=== PATIENT | male | born 1995 | race Caucasian/White ===

== ENCOUNTER 2018-01-16 20:36 | Emergency (ER) | payer OTHER ==
[2018-01-16 21:20] VITALS: BP 129/65
--- NOTE | 2018-01-16 22:05 | UC ---
Complaint Male HPI - HPI Summary HPI Summary: 1. PATIENT HERE COMPLAINING OF ONSET OF FLANK PAIN AND ABDOMINAL PAIN STARTING YESTERDAY. IS COMPLAINING OF DYSURIA AND FREQUENCY FOR THE PAST SEVERAL DAYS. TODAY WHEN HE WAS URINATING A BLOOD CLOT CAME OUT. DENIES PENILE D/C. IS IN A MONOGAMOUS RELATIONSHIP WITH A FEMALE FOR OVER 1 YEAR. IS NOT CONCERNED ABOUT STD. 2. PATIENT COMPLAINS OF 7-8 MONTHS OF SWOLLEN LYMPH NODE ON THE LEFT SIDE OF HIS NECK. 3. HE IS ALSO CONCERNED ABOUT LOSS OF SKIN COLOR ON HIS UPPER ARMS THAT HAS BEEN PROGRESSIVELY WORSENING OVER THE PAST ONE YEAR. - History of Current Complaint Chief Complaint: UCBackPain Stated Complaint: ABD & BACK PAIN,POSS UTI Time Seen by Provider: 01/16/18 21:37 Hx Obtained From: Patient Onset/Duration: Sudden Onset, Lasting Days, Still Present Severity Initially: Moderate Severity Currently: Moderate Pain Intensity: 7 Pain Scale Used: 0-10 Numeric Location: Flank Aggravating Factor(s): Voiding Alleviating Factor(s): Nothing Associated Signs And Symptoms: Positive: Back Pain, Hematuria, Dysuria - Allergies/Home Medications Allergies/Adverse Reactions: Allergies Allergy/AdvReac Type Severity Reaction Status Date / Time No Known Allergies Allergy Verified 01/16/18 23:20 Home Medications: Home Medications Acetaminophen [Pain Relief] 2 tab PO ONCE PRN 01/16/18 [History Confirmed ] PMH/Surg Hx/FS Hx/Imm Hx Psychological History: Depression - Surgical History Surgical History: None - Family History Known Family History: Positive: Other - depression; esophageal cancer - gram - Social History Alcohol Use: Weekly Substance Use Type: Marijuana, Other Substance Use Comment - Amount & Last Used: MUSHROOMS Smoking Status (MU): Former Smoker Type: Cigarettes Amount Used/How Often: A pack or more per day Length of Time of Smoking/Using Tobacco: 6 Years - Immunization History Most Recent Influenza Vaccination: Unsure Most Recent Tetanus Shot: Within 5 years Most Recent Pneumonia Vaccination: Unsure Review of Systems Constitutional: Fatigue Skin: Rash Respiratory: Negative Cardiovascular: Negative Gastrointestinal: Abdominal Pain Genitourinary: Dysuria, Hematuria, Frequency, Other - FLANK PAIN Psychological: Depressed All Other Systems Reviewed And Are Negative: Yes Physical Exam Triage Information Reviewed: Yes Appearance: Well-Appearing, No Pain Distress, Well-Nourished Vital Signs: Initial Vital Signs Temp 98.3 F 10/20/18 21:11 Pulse 79 01/16/18 21:11 Resp 16 01/16/18 21:11 BP 129/65 01/16/18 21:11 Pulse Ox 100 01/16/18 21:11 Laboratory Tests 01/16/18 21:47 POC Urine Color Dark yellow POC Urine Clarity Cloudy POC Urine pH 5.5 POC Ur Specif [place] >= 1.030 POC Urine Protein 2+ A POC Ur Glucose (UA) Negative POC Urine Ketones Trace A POC Urine Blood 1+ A POC Urine Nitrite Negative POC Urine Bilirubin Negative POC Urine Urobilinogen 1.0 POC U Leukocyte Esteras Negative Vital Signs Reviewed: Yes Eyes: Positive: Conjunctiva Clear ENT: Positive: Hearing grossly normal Neck: Positive: Supple, Tenderness @ - SPFL CERVICAL LAD, Enlarged Nodes @ - SPFL CERVICAL LAD Respiratory Exam: Normal Cardiovascular Exam: Normal Abdomen Description: Positive: Soft, CVA Tenderness (R), CVA Tenderness (L), Other: - DIFFUSELY TENDER. NO REBOUND OR RIGIDITY. Negative: Distended, Guarding Bowel Sounds: Positive: Present Musculoskeletal: Positive: No Edema Neurological: Positive: Alert Psychological: Positive: Age Appropriate Behavior Skin: Positive: Other - HYPOPIGMENTATION UPPER EXTREMITIES Complaint Male Course/Dx - Course Course Of Treatment: PT WITH LONGSTANDING H/O ENLARGED CERVICAL LYMPH NODES AND RECENT HEMATURIA/DYSURIA WITH ABDOMINAL AND FLANK PAIN. UNABLE TO GET STAT LAB OR IMAGING AT . PT TO GO DIRECTLY TO THE ED FOR FURTHER EVALUATION. PT MAY HAVE VITILIGO OR PITYRIASIS ALBA. CONTACT FOR DERM PROVIDED. - Differential Dx/Diagnosis Provider Diagnoses: 1. HEMATURIA/FLANK PAIN/ABD PAIN. 2. LYMPHADENOPATHY - Physician Notifications Discussed Patient Care With: Rachael Marcial - TO [facility] ED BY TAXI Time Discussed With Above Provider: 23:25 Instructed by Provider To: MD Will See In ED Discharge - Sign-Out/Discharge Documenting (check all that apply): Patient Departure All imaging exams completed and their final reports reviewed: No Studies - Discharge Plan Condition: Stable Disposition: TRANS HIGHER LVL OF CARE FAC Patient Education Materials: Lymphadenopathy (ED), Hematuria (ED), Flank Pain ( ED) Referrals: [facility] [Outside] - 3 Days Additional Instructions: GO DIRECTLY TO THE ED FOR FURTHER EVALUATION. YOUR URINE HERE SHOWED BLOOD AND PROTEIN. WE HAVE SENT YOUR URINE FOR TESTING FOR GONORRHEA AND CHLAMYDIA. WE WILL CALL YOU IF POSITIVE. CALL THE NUMBER BELOW FOR ASSISTANCE IN ESTABLISHING WITH A PCP An additional resource available to assist in finding the appropriate physician for your health care needs is the Physician Referral Center (Juliane Kyle). You may contact them by calling [phone]. FOR YOUR SKIN CONDITION CALL DERMATOLOGY FOR EVAL. DERMATOLOGY IN [place] DR. TAMMI BRISCOE [facility], [facility] [address] [facility]; [address] [place] [id number] Dr. Gia Francis [place] Address: [facility]ly [facility], [id number] [place] [phone] DR. ANTON CHAVEZ [facility] Dermatology [address] [place] [address] [facility]. Pita Victor DERMATOLOGY IN [place] DR. RAHAT AMAYA [phone] - Billing Disposition and Condition Condition: STABLE Disposition: Trans Higher Lvl of Care Fac
--- NOTE | 2018-01-18 20:00 | UC ---
- Progress Note Progress Note: Chlamydia positive - appears to have been treated with Cipro, this has poor coverage for chlamydia. Rx for Azithromycin 1 gm sent. Please advise to refrain from sexual activity for at least 1 week AFTER taking antibiotic Course/Dx - Provider Notifications Time Discussed With Above Provider: 23:25 Instructed by Provider To: MD Will See In ED Discharge - Sign-Out/Discharge Documenting (check all that apply): Post-Discharge Follow Up All imaging exams completed and their final reports reviewed: No Studies - Discharge Plan Condition: Stable Disposition: TRANS HIGHER LVL OF CARE FAC Prescriptions: Azithromycin 1,000 mg PO ONCE #2 tab Patient Education Materials: Lymphadenopathy (ED), Hematuria (ED), Flank Pain ( ED) Referrals: [facility] [Outside] - 3 Days Additional Instructions: GO DIRECTLY TO THE ED FOR FURTHER EVALUATION. YOUR URINE HERE SHOWED BLOOD AND PROTEIN. WE HAVE SENT YOUR URINE FOR TESTING FOR GONORRHEA AND CHLAMYDIA. WE WILL CALL YOU IF POSITIVE. CALL THE NUMBER BELOW FOR ASSISTANCE IN ESTABLISHING WITH A PCP An additional resource available to assist in finding the appropriate physician for your health care needs is the Physician Referral Center (Juliane Kyle). You may contact them by calling [phone]. FOR YOUR SKIN CONDITION CALL DERMATOLOGY FOR EVAL. DERMATOLOGY IN [place] DR. TAMMI BRISCOE [facility], [facility] [address] [facility]; [address] [place] [address] Dr. Gia Centeno Address: [address] [place] [address] [address] [place] [address] DR. ANTON CHAVEZ [facility] Dermatology [address] [place] [address] DER[address] IN [place] Dr[address] Pita Victor DERMATOLOGY [place] DR. RAHAT AMAYA [phone] - Billing Disposition and Condition Condition: STABLE Disposition: Trans Higher Lvl of Care Fac
== END 2018-01-16 22:35 | disposition short-term general hospital (02) ==
LOC: UCEAST 20:36
DX: R31.9 Hematuria, unspecified (principal); R10.9 Unspecified abdominal pain
CPT/HCPCS: 81003; 87491; 87591; 99212; G0463

== ENCOUNTER 2018-01-16 23:09 | Emergency (ER) | payer OTHER ==
[2018-01-17 00:47] LABS: ABS Basophils 0 10^3/ul (0-0.2); ABS Eosinophils 0.2 10^3/ul (0-0.6); ABS Lymphocytes 2.2 10^3/ul (1.0-4.8); ABS Monocytes 1.3 10^3/ul (0-0.8); ABS Neutrophils 6.7 10^3/ul (1.5-7.7); ABS Nucleated RBC 0 10^3/ul; Eosinophil % 1.9 % (0-6); Hematocrit 41 % (42-52); Hemoglobin 13.8 g/dl (14.0-18.0); Lymphocyte % 20.8 % (25-47); Mean Corpuscular HGB Conc 34 g/dl (31-36); Mean Corpuscular Hemoglobin 30 pg (27-31); Mean Corpuscular Volume 90 fL (80-94); Mean Platelet Volume 7.3 um3 (7.4-10.4); Nucleated Red Blood Cells % 0; Platelet Count 243 10^3/ul (150-450); Red Blood Count 4.53 10^6/ul (4.00-5.40); Red Cell Distribution Width 13 % (10.5-15); White Blood Count 10.5 10^3/ul (3.5-10.8)
[2018-01-17 00:49] LABS: Urine Appearance Cloudy; Urine Blood Negative (Negative); Urine Color Yellow; Urine Ketones Negative (Negative); Urine Protein Negative (Negative); Urine Red Blood Cell 1+(3-5/hpf) (Absent); Urine Specific Gravity 1.027 (1.010-1.030); Urine Urobilinogen Negative (Negative); Urine White Blood Cell 3+(>20/hpf) (Absent)
[2018-01-17 01:00] LABS: EGFR Non-African American 79.5 (>60)
[2018-01-17] MEDS ORDERED: Ciprofloxacin TAB* 500 MG PO ONE (01:21)
[2018-01-17] MEDS ORDERED: Ketorolac INJ* 30 MG/ML 1 ML VIAL IM ONE (01:21)
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
--- NOTE | 2018-01-17 01:24 | RAD ---
EXAM: CT Abdomen and Pelvis Without Intravenous Contrast EXAM DATE/TIME: 01/17/2018 12:50 AM CLINICAL HISTORY: 22 years old, male; Pain; Abdominal pain; Generalized; Patient HX: Bilateral mid and lower abd pain and back pain; Additional info: Flank pain, hematuria TECHNIQUE: Axial computed tomography images of the abdomen and pelvis without intravenous contrast. All CT scans at this facility use at least one of these dose optimization techniques: automated exposure control; mA and/or kV adjustment per patient size (includes targeted exams where dose is matched to clinical indication); or iterative reconstruction. Coronal and sagittal reformatted images were created and reviewed. COMPARISON: No relevant prior studies available. FINDINGS: Lower thorax: No acute findings. ABDOMEN: Liver: Normal. No mass. Gallbladder and bile ducts: The gallbladder is somewhat contracted with no stones. Pancreas: Normal. No ductal dilation. Spleen: Normal. No splenomegaly. Adrenals: Normal. No mass. Kidneys and ureters: Dense bilateral renal papillae with no definite renal calculi. Stomach and bowel: Normal. No obstruction. No mucosal thickening. Appendix: A normal appendix is seen. PELVIS: Bladder: The urinary bladder is decompressed but appears grossly normal. Reproductive: Unremarkable as visualized. ABDOMEN and PELVIS: Intraperitoneal space: Normal. No free air. No significant fluid collection. Bones/joints: No acute fracture. No dislocation. Soft tissues: Unremarkable. Vasculature: Normal. No abdominal aortic aneurysm. Lymph nodes: Normal. No enlarged lymph nodes. IMPRESSION: 1. Dense bilateral renal papillae which may be seen with a predisposition for stone formation, however, no renal calculi are evident. 2. Otherwise negative CT abdomen/pelvis. No renal or ureteral calculi are evident and there is no evidence of obstructive uropathy. To contact [facility] with a general question: Operations Center - [phone] For direct physician to physician contact: Physician Hotline - [phone] [facility] ([facility] Facility ID #[id number])
[2018-01-17 02:01] VITALS: BP 125/59
== END 2018-01-17 02:00 | disposition home or self-care (01) ==
LOC: ED 23:09
DX: N39.0 Urinary tract infection, site not specified (principal); R10.9 Unspecified abdominal pain; R31.9 Hematuria, unspecified; Z87.891 Personal history of nicotine dependence
CPT/HCPCS: 36415; 74176; 80053; 81003; 81015; 83690; 85025; 86140; 86308; 87086; 87651; 96372; 99283; A9270-GY; J1885

== ENCOUNTER 2018-03-13 12:24 | Emergency (ER) | payer SELFPAY ==
[2018-03-13 12:48] VITALS: BP 130/60
--- NOTE | 2018-03-13 12:52 | UC ---
Complaint Male HPI - HPI Summary HPI Summary: 22 y/o male presents to the urgent care c/o burning and frequency on urination and a clear penile discharge for the past week. Pt reports about pt was Dx with chlamydia about 1 month ago. Pt was called in a Rx for Azithromycin 2 pills. Pt states he had unprotected sex 2 weeks after treatment w / the same partner and then about 1 week ago he started to noticed a clear penile discharge. About 3 days ago he started w/ burning and frequency on urination, mild lower back pain, 4/10. Today he feel mild left side scrotal pain. Pt states last time he was here a month ago, he had hematuria and was sent to the ER. They did an pelvis CT which was negative and Dx w/ UTI and RX Cipro. Then 2 days later he was contacted he was positive for Chlamydia. Pt denies fever, flank pain, hematuria, SOB, chest pain, abdominal pain, N/V/D. - History of Current Complaint Chief Complaint: UCGU Stated Complaint: PERSONAL Time Seen by Provider: 03/13/18 12:48 Hx Obtained From: Patient Onset/Duration: Gradual Onset, Lasting Weeks - 4 weeks, Still Present, Worse Since - last week Timing: Constant Severity Initially: Mild Severity Currently: Moderate Pain Intensity: 5 - burining on urination Pain Scale Used: 0-10 Numeric Location: Scrotum - left mild pain Character: Burning Aggravating Factor(s): Voiding Alleviating Factor(s): Nothing Associated Signs And Symptoms: Positive: Back Pain - mild lower back pain, Penile Discharge - clear. Negative: Fever, Hematuria, Blood in Stool, Rectal Pain, Appetite, Nausea, Vomiting(# Of Episodes =), Penile Swelling - Risk Factors Testicular Torsion: Negative - Allergies/Home Medications Allergies/Adverse Reactions: Allergies Allergy/AdvReac Type Severity Reaction Status Date / Time No Known Allergies Allergy Verified 03/13/18 12:48 PMH/Surg Hx/FS Hx/Imm Hx - Additional Past Medical History Additional PMH: chlamydia Previously Healthy: Yes Psychological History: Anxiety - Surgical History Surgical History: None - Family History Known Family History: Positive: Other - depression; esophageal cancer - gram - Social History Occupation: Employed Full-time Lives: With Family Alcohol Use: Occasionally Substance Use Type: Marijuana, Other Substance Use Comment - Amount & Last Used: MUSHROOMS Smoking Status (MU): Heavy Every Day Tobacco Smoker Type: Cigarettes Amount Used/How Often: A pack or more per day Length of Time of Smoking/Using Tobacco: 6 Years - Immunization History Most Recent Influenza Vaccination: Unsure Most Recent Tetanus Shot: Within 5 years Most Recent Pneumonia Vaccination: Unsure Vaccination Up to Date: Yes Review of Systems All Other Systems Reviewed And Are Negative: Yes Constitutional: Positive: Negative Skin: Positive: Negative Eyes: Positive: Negative ENT: Positive: Negative Respiratory: Positive: Negative Cardiovascular: Positive: Negative Gastrointestinal: Positive: Negative Genitourinary: Positive: Dysuria, Frequency, Urgency, Vaginal/Penile Burning, Vaginal/Penile Discharge, Other - left side of scrotum w/ mild pain. Negative : Vaginal/Penile Itching, Vaginal/Penile Pain Motor: Positive: Negative, Decreased ROM Musculoskeletal: Positive: Negative Neurological: Positive: Negative Psychological: Positive: Negative Is Patient Immunocompromised?: No Physical Exam - Summary Physical Exam Summary: VITAL SIGNS: Reviewed. GENERAL: Patient is a well developed and nourished male adolescent who is sitting comfortable in the examining table. Patient is not in any acute respiratory distress. HEAD AND FACE: No signs of trauma. No ecchymosis, hematomas or skull depressions. No sinus tenderness. EYES: PERRLA, EOMI x 2, No injected conjunctiva, clear watery eyes, no nystagmus. No photophobia. EARS: Hearing grossly intact. Ear canals and tympanic membranes are within normal limits. MOUTH: pharynx with no erythema, no exudates,no palatal petechiae. no B/L tonsillar enlargement Uvula in midline. NECK: Supple, trachea is midline, no lymphadenopathy, no JVD, no carotid bruit, no c-spine tenderness, neck with full ROM. CHEST: Symmetric, no tenderness at palpation LUNGS: Clear to auscultation bilaterally. No wheezing or crackles. CVS: Regular rate and rhythm, S1 and S2 present, no murmurs or gallops appreciated. ABDOMEN: Soft, non-tender. No signs of distention. No rebound no guarding, and no masses palpated. Bowel sounds are normal. : I was assisted by Nurse Yumiko. Normal external genitalia of circumcised male adolescent. No inguinal tenderness, lesions, or lymphadenopathy. No direct or indirect hernia. , glans penis normal. Urinary meatus clear without discrete clear discharge,no erythema. Penile shaft without lesions, swelling, tenderness. Scrotum without swelling, erythema, left scrotum w/ mild tenderness on palpation, no induration, no crepitus. Testis in normal position, not high riding, non tender. No localized tenderness over upper pole of testis. BACK:no scoliosis or lesions, non tender to palpation, No B/L CVA tenderness EXTREMITIES: FROM in all major joints, no edema, no cyanosis or clubbing. NEURO: Alert and oriented x 3. No acute neurological deficits. Speech is normal and follows commands. SKIN: Dry and warm Triage Information Reviewed: Yes Vital Signs: Initial Vital Signs Temp 98.6 F 03/13/18 12:43 Pulse 92 03/13/18 12:43 Resp 18 03/13/18 12:43 BP 130/60 03/13/18 12:43 Pulse Ox 99 03/13/18 12:43 Complaint Male Course/Dx - Course Course Of Treatment: 22 y/o male presents to the urgent care c/o burning and frequency on urination and a clear penile discharge for the past week. Pt reports about. pt was Dx with chlamydia about 1 month ago. Pt was called in a Rx for Azithromycin 2 pills. Pt states he had unprotected sex 2 weeks after treatment w/ the same partner and then about 1 week ago he started to noticed a clear penile discharge. About 3 days ago he started w/ burning and frequency on urination, mild lower back pain, 4/10. Today he feel mild left side scrotal pain. Pt states last time he was here a month ago, he had hematuria and was sent to the ER. They did an pelvis CT which was negative and Dx w/ UTI and RX Cipro. Then 2 days later he was contacted he was positive for Chlamydia. Pt denies fever, flank pain, hematuria, SOB, chest pain, abdominal pain, N/V/D. Hx obtained. PE: WNL. no CVA tenderness, : I was assisted by Nurse Yumiko. Normal external genitalia of circumcised male adolescent. No inguinal tenderness , lesions, or lymphadenopathy. No direct or indirect hernia, glans penis normal. Urinary meatus clear without discrete clear discharge,no erythema. Penile shaft without lesions, swelling, tenderness. Scrotum without swelling, erythema, left scrotum w/ mild tenderness on palpation, no induration, no crepitus. Testis in normal position, not high riding, non tender. No localized tenderness over upper pole of testis on examination. At this moment no US available. However since Pt w/ positive Chlamydia and re-exposure w/ mild penile discharge. Pt probably w/ epididimytis. UA-negative. Last pelvis CT doen on 12/2017 was negative. Pt will be treated Prohylactically for Gonorrhea w/ Rocephin IM inj, guvne by nurse. And Rx Doxycycline PO as directed below. Pt given referral w/ Urologist Dr Smith in 3 days for further evaluation and treatment if his symptoms worsen despite the antibiotics. Pt also strongly advised [facility]. Urine sent to lab to [facility] GC/chlamydia, trinchomonas. Pt educated in STD's and the importance to use condom protection. Pt also advised if he develops sever testicular pain to go immediately to the ER for further evalaution. Pt understood and agreed w/ plan of care. - Differential Dx/Diagnosis Differential Diagnosis/HQI/PQRI: Epididymitis, Phimosis, Priaprism, Testicular Torsion, Urinary Tract Infection, Other - std's Provider Diagnosis: Epididymitis, Chlamydia contact, STD (sexually transmitted disease) Discharge - Sign-Out/Discharge Documenting (check all that apply): Patient Departure - d/C home All imaging exams completed and their final reports reviewed: No Studies - Discharge Plan Condition: Stable Disposition: HOME Prescriptions: DOXYcycline CAP(*) [DOXYcycline 100MG CAP(*)] 100 mg PO BID #28 cap Ibuprofen TAB* [Motrin TAB* 600 MG] 600 mg PO Q6H PRN #20 tab PRN Reason: Pain Patient Education Materials: Chlamydia (ED), Epididymitis (ED), Sexually Transmitted Diseases in Adolescents (ED) Forms: *Work Release Referrals: [facility] – [place] [facility] REFERR[facility] [Outside] - 3 Days Guido Horn MD [Medical Doctor] - 3 Days Additional Instructions: 1-You were given prophylactic treatment today for GC and chlamydia for your penile discharge 2- Please take Ibuprofen PO q6-8hrs prn after meals to alleviate pain. Please increase fluid intake, and rest. 3- Specimen were sent to lab, if anything abnormality you will receive a call from us for further treatment. 4-If you develop severe abdominal pain or testicular pain please go immediately to the ER for further treatment. 5- Today there is not Ultrasound available. Please f/u w/ Urologist DR Smith if not improvement of symptoms in 3 days for a testicular Ultrasound and further treatment. 6- [facility] for [facility] other STD's screening: HIV, herpes, syphilis, hep c and b and to make sure you are completely clear of the Chlamydia. Please always wear a condom during sexual intercourse. - Billing Disposition and Condition Condition: STABLE Disposition: Home
[2018-03-13] MEDS ORDERED: cefTRIAXone VIAL(*) 250 MG VIAL IM ONE (13:26)
[2018-03-13] MEDS ORDERED: Lidocaine 1%* 5 ML VIAL INJ ONE (13:27)
== END 2018-03-13 13:56 | disposition home or self-care (01) ==
LOC: UCEAST 12:24
DX: Z20.2 Contact with and (suspected) exposure to infections with a predominantly sexual mode of transmission (principal); N45.1 Epididymitis; A64 Unspecified sexually transmitted disease; F17.210 Nicotine dependence, cigarettes, uncomplicated
CPT/HCPCS: 81003; 87491; 87591; 87661; 96372; 99212; G0463; J0696

== ENCOUNTER 2018-12-03 11:56 | Emergency (ER) | payer OTHER ==
[2018-12-03 12:03] VITALS: BP 123/50
--- NOTE | 2018-12-03 12:04 | UC ---
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 He is concerned that he may have been exposed to mononucleosis last couple weeks. Every am upon awakening, he reports that greenish mucus comes from nose and coughed up. No rash. No sob / cp. + smoker, but decreasing. Also- c/o last several weeks of ongoing dysuria, pain with urination. Some freq / urgency. Reports that he was tested by [facility] yesterday for chlamydia, and it was negative, but they told him that they are not able to treat a urine infection, prompting his visit here. No blood. No recent fever / chills. No GI issues. - History of Current Complaint Chief Complaint: UCRespiratory Stated Complaint: SINUS CNGESTION Time Seen by Provider: 12/03/18 12:00 Hx Obtained From: Patient Pain Intensity: 5 - Allergy/Home Medications Allergies/Adverse Reactions: Allergies Allergy/AdvReac Type Severity Reaction Status Date / Time No Known Allergies Allergy Verified 12/03/18 12:03 PMH/Surg Hx/FS Hx/Imm Hx Previously Healthy: Yes - Surgical History Surgical History: None - Family History Known Family History: Positive: Other - depression; esophageal cancer - gram - Social History Alcohol Use: Occasionally Substance Use Type: Marijuana, Other Substance Use Comment - Amount & Last Used: mushrooms, daily Smoking Status (MU): Light Every Day Tobacco Smoker Type: eCigarettes Amount Used/How Often: A pack or more per day Length of Time of Smoking/Using Tobacco: 6 Years - Immunization History Most Recent Influenza Vaccination: Unsure Most Recent Tetanus Shot: Within 5 years Most Recent Pneumonia Vaccination: Unsure Vaccination Up to Date: Yes Review of Systems All Other Systems Reviewed And Are Negative: Yes Constitutional: Positive: Negative Skin: Positive: Negative Eyes: Positive: Negative ENT: Positive: Sore Throat, Nasal Discharge, Sinus Congestion Respiratory: Positive: Cough Cardiovascular: Positive: Negative Gastrointestinal: Positive: Other - see hpi Genitourinary: Positive: Other - see hpi Motor: Positive: Negative Neurovascular: Positive: Negative Musculoskeletal: Positive: Negative Neurological: Positive: Negative Psychological: Positive: Negative Is Patient Immunocompromised?: No Physical Exam Triage Information Reviewed: Yes Appearance: Well-Appearing - but sitting up, looks tired but nad, Well-Nourished Vital Signs: Initial Vital Signs Temp 98 F 12/03/18 12:00 Pulse 46 12/03/18 12:00 Resp 16 12/03/18 12:00 BP 123/50 12/03/18 12:00 Pulse Ox 100 12/03/18 12:00 Vital Signs Reviewed: Yes Eye Exam: Normal ENT: Positive: Pharyngeal erythema - mild redness post pharynx c/w cough, no sores / exudate, uvula midline. Airway patent., Nasal congestion, TM dull - TM dull rtx'd L TM ok R Neck exam: Normal - pt reports having felt adenopathy at home, none noted today Neck: Positive: Supple, Nontender Respiratory Exam: Normal Respiratory: Positive: Chest non-tender, Lungs clear, Normal breath sounds, No respiratory distress, No accessory muscle use Cardiovascular Exam: Normal Cardiovascular: Positive: RRR, Pulses Normal, Brisk Capillary Refill Abdominal Exam: Normal - no cvat Abdomen Description: Positive: Nontender Musculoskeletal Exam: Normal Neurological Exam: Normal Psychological Exam: Normal Skin Exam: Normal - no visible or reported rash Course/Dx - Course Course Of Treatment: Reviewed coa / tx plan. Questions as posed answered to the best of my ability. d/t length and / or recurrence of sx, will tx sx via abx course for uti ( indeed possible prostatitis). Aware of the importance of close pcp f/u. If ongoing problems or no improvement may need for further specialty (ex urology). Pt does NOT want chlamydia testing, citing already done. Strongly encourage f/u with a PCP. [facility] [place] [facility] [place] given. Rx doxycycline. [facility] will cover sinus issues as well. - Diagnoses Provider Diagnosis: Sinusitis, UTI (urinary tract infection) Discharge ED - Sign-Out/Discharge Documenting (check all that apply): Patient Departure All imaging exams completed and their final reports reviewed: No Studies - Discharge Plan Condition: Stable Disposition: HOME Prescriptions: DOXYcycline CAP(*) [DOXYcycline 100MG CAP(*)] 100 mg PO BID 28 Days #56 cap Patient Education Materials: Urinary Tract Infection in Men (ED), Sinusitis (ED ), Hematuria (ED) Forms: *Work Release Referrals: [facility] [place] [facility] [place] [facility] [Outside] No Primary Care Phys,NOPCP [Primary Care Provider] - Additional Instructions: Hydrate. Wear mask at work until you are no longer sneezing and coughing. Your urine dipped postive for a trace of blood It is important that you see a primary care physician to have this rechecked, after antibiotic complete. Please seek medical attention for any worse or new problems. While taking doxycycline - avoid prolonged direct sun exposure. Hydrate. Yogurt and / or probiotic daily. - Billing Disposition and Condition Condition: STABLE Disposition: Home
[2018-12-06 12:59] LABS: EBV Capsid Ag IgG Ab Positive (Negative); EBV Capsid Ag IgM Ab Negative (Negative); Epstein-Barr Nuclear Antigen Positive (Negative)
== END 2018-12-03 13:00 | disposition home or self-care (01) ==
LOC: UCEAST 11:56
DX: J32.9 Chronic sinusitis, unspecified (principal); N39.0 Urinary tract infection, site not specified; F17.290 Nicotine dependence, other tobacco product, uncomplicated
CPT/HCPCS: 36415; 81003; 86308; 86664; 86665; 87086; 99212; G0463

== ENCOUNTER 2019-11-05 07:13 | Inpatient (IN) ==
[2019-11-05 08:07] LABS: Urine Benzodiazepine Screen Presumptive Positive (None Detect); Urine Cannabinoids Screen Presumptive Positive (None Detect); Urine Opiates Screen Presumptive Positive (None Detect)
[2019-11-05 08:14] LABS: ABS Eosinophils 0.1 10^3/ul (0-0.6); ABS Lymphocytes 1.6 10^3/ul (1.0-4.8); ABS Monocytes 0.6 10^3/ul (0-0.8); ABS Neutrophils 4.9 10^3/ul (1.5-7.7); Eosinophil % 1.6 %; Hematocrit 36 % (42-52); Hemoglobin 13.1 g/dL (14.0-18.0); Lymphocyte % 22.3 %; Mean Corpuscular HGB Conc 36 g/dL (31-36); Mean Corpuscular Hemoglobin 32 pg (27-31); Mean Corpuscular Volume 89 fL (80-94); Mean Platelet Volume 7.5 fL (7.4-10.4); Platelet Count 238 10^3/uL (150-450); Red Blood Count 4.08 10^6 /uL (4.18-5.48); Red Cell Distribution Width 12 % (10-15); White Blood Count 7.3 10^3/uL (3.5-10.8)
[2019-11-05 08:26] LABS: Urine Bacteria Absent (Absent); Urine Red Blood Cell 2+(6-10/hpf) (Absent); Urine Squamous Epithelial Cell Present (Absent); Urine White Blood Cell 2+(11-20/hpf) (Absent)
[2019-11-05 08:27] LABS: Urine Appearance Cloudy; Urine Bilirubin Negative (Negative); Urine Blood Negative (Negative); Urine Color Yellow; Urine Glucose Negative (Negative); Urine Ketones Negative (Negative); Urine Nitrite Negative (Negative); Urine Protein Negative (Negative); Urine Specific Gravity 1.024 (1.010-1.030); Urine Urobilinogen Negative (Negative)
[2019-11-05 08:39] LABS: ALT 14 U/L (7-52); AST 26 U/L (13-39); Albumin 4.2 g/dL (3.2-5.2); Albumin/Globulin Ratio 1.9 (1-3); Alkaline Phosphatase 47 U/L (34-104); Anion Gap 6 mmol/L (2-11); BUN/Creatinine Ratio 15.7 (8-20); Blood Urea Nitrogen 21 mg/dL (6-24); CO2 Carbon Dioxide 27 mmol/L (22-32); Calcium 9.1 mg/dL (8.6-10.3); Chloride 105 mmol/L (101-111); EGFR African American 80.7 (>60); EGFR Non-African American 66.7 (>60); Globulin 2.2 g/dL (2-4); Glucose 101 mg/dL (70-100); Potassium 3.5 mmol/L (3.5-5.0); Sodium 138 mmol/L (135-145); Total Protein 6.4 g/dL (6.4-8.9)
[2019-11-05 08:55] LABS: Acetaminophen < 15 mcg/mL; Alcohol, S < 10 mg/dL (<10); Salicylate < 2.50 mg/dL (<30)
[2019-11-05 09:09] LABS: TSH (Thyroid Stimulating Horm) 0.64 mcIU/mL (0.34-5.60)
[2019-11-05] MEDS ORDERED: Al Hydrox/Mg Hydrox/Simet LIQ 30 ML UDC PO PRN (11:47)
[2019-11-05] MEDS: chlorproMAZINE TAB* 50 MG Q6H PRN AGITATION PO (17:54)
[2019-11-06] MEDS: Vitamin THERAPEUTIC TAB PO SCH (12:09)
[2019-11-06] MEDS: chlorproMAZINE TAB* 50 MG Q6H PRN AGITATION PO (12:09)
[2019-11-07 08:55] LABS: HDL Cholesterol 29.5 mg/dL
[2019-11-07 10:15] VITALS: BP 110/57
[2019-11-07] MEDS: Vitamin THERAPEUTIC TAB PO SCH (10:17)
== END 2019-11-07 14:30 | disposition home or self-care (01) | DRG 776 ==
LOC: ED 07:13 → BSU 10:20
PROVIDERS: ADMIT Psychiatry & Neurology Addiction Psychiatry; ATTEND Psychiatry & Neurology Addiction Psychiatry